=== PATIENT | female | born 1990 | race Caucasian/White ===

== ENCOUNTER → 2016-10-01 | Day surgery (SDC) | payer OTHER ==
[~2016-10-01] VITALS: Ht 160 cm; Wt 62.6 kg
[~2016-10-01] MED LIST: PROZAC20 M2 PO
--- NOTE | 2016-10-01 12:41 | Operative Report ---
Operative/Inv Procedure Report Surgery Date: 10/01/16 Name of Procedure: Excision ganglion on dorsal left wrist Pre-Operative Diagnosis: Dorsal left wrist ganglion on Post-Operative Diagnosis: Same Estimated Blood Loss: scant Surgeon/Radial Saw Operator: UNA WEISS MD Anesthesia: moderate sedation Operative/Procedure Note Note: She was counseled in regards to the procedure the alternatives risks and expected outcomes as relates to request for surgical intervention to treat symptomatic left dorsal wrist ganglion. We talked about the risks which included but were not limited to infection bleeding pain numbness recurrence wound chin. Once agreed informed consent was signed she was taken to the operative placed supine on the table intravenous sedation and antibiotics were given the left hand was prepped and draped in usual sterile fashion. Transverse incision was made overlying the mass the soft tissues was surrounded from the capsule and the capsule was excised including the neck down to the capsular space. Copious irrigation was carried out and layered closure was performed.
== END ==
LOC: STS 01:41
DX: M67.432 Ganglion, left wrist (principal); F17.290 Nicotine dependence, other tobacco product, uncomplicated
CPT/HCPCS: 81025; 88304; J0690; J1885; J2250; J2405